=== PATIENT | male | born 2000 | race Caucasian/White ===

== ENCOUNTER 2023-02-22 16:18 | Emergency (ER) | payer OTHER ==
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
[2023-02-22] MEDS ORDERED: HYDROCODONE/APAP 5/325 MG TAB ONE (18:23)
[2023-02-22] MEDS ORDERED: DIAZEPAM 5 MG TABLET ONE (18:23)
[2023-02-22 19:28] VITALS: BP 169/94; TEMP 98.2; O2SAT 96
--- NOTE | 2023-02-23 15:45 | EKG ---
Test Date: 2023-02-22 Test Time: 18:04:31 Leasing Property Manager: MARISABEL MEASUREMENT RESULTS: Intervals: Rate: 91 MO: 110 QRSD: 96 QT: 346 QTc: 425 [place]: P: 45 MO: 110 QRS: 81 T: 58 INTERPRETIVE STATEMENTS: Sinus rhythm with short MO Otherwise normal ECG Compared to ECG 03/10/2016 15:38:34 Short MO interval now present Electronically Signed On 02-23-23 15:44:07 CDT by Orlando Frias
== END 2023-02-22 18:17 | disposition home or self-care (01) ==
LOC: ER 16:18
DX: M54.13 Radiculopathy, cervicothoracic region (principal); V44.5XXA Car driver injured in collision with heavy transport vehicle or bus in traffic accident, initial encounter; Z72.0 Tobacco use
CPT/HCPCS: 71046; 93005